=== PATIENT | male | born 1945 | race Caucasian/White ===

== ENCOUNTER 2019-12-13 09:55 | Inpatient (IN) | payer MEDICARE ==
[~2019-12-13] VITALS: Ht 175.3 cm; Wt 118.2 kg
[2019-12-13] MEDS ORDERED: NEURONTIN 300300 MG PO (10:12)
[2019-12-13] MEDS ORDERED: OMEPRAZOLE40 MG PO (10:12)
[2019-12-13] MEDS ORDERED: HYDROCHLOROTHIA25 MG PO (10:12)
[2019-12-13] MEDS ORDERED: COREG6.25 MG PO (10:13)
[2019-12-13] MEDS ORDERED: LEXAPRO20 MG PO (10:31)
[2019-12-13] MEDS ORDERED: LISINOPRIL20 MG PO (10:31)
[2019-12-13] MEDS ORDERED: SINGULAIR10 MG PO (10:32)
[2019-12-13] MEDS ORDERED: MOBIC7.5 MG PO (10:32)
[2019-12-13] MEDS ORDERED: GLYBURIDE5 M1 PO (10:32)
[2019-12-13] MEDS ORDERED: MULTI-DAY VITAM1 TAB PO (10:33)
[2019-12-13] MEDS ORDERED: LIPITOR20 MG PO (10:33)
[2019-12-13] MEDS ORDERED: [UNRECOGNIZED DRUG - OTHER] EACH EYE (13:40)
[2019-12-13] MEDS ORDERED: ACETAMINOPHEN500 M1 PO (13:43)
[2019-12-13] MEDS ORDERED: ADVIL100 M1 PO (13:44)
[2019-12-13 13:50] VITALS: Ht 175.3 cm; Wt 118.2 kg
[2019-12-16 09:32] VITALS: BP 167/75
[2019-12-16] MEDS ORDERED: ZITHROMAX250 MG PO (12:25)
[2019-12-16] MEDS ORDERED: CEFUROXIME500 MG PO (12:27)
== END 2019-12-16 13:38 | disposition home or self-care (01) | DRG 194 ==
LOC: D.ER 09:55 → D.M2 12:02
PROVIDERS: ADMIT Emergency Medicine; ATTEND Emergency Medicine
DX: J18.9 Pneumonia, unspecified organism (principal); N17.9 Acute kidney failure, unspecified; F17.203 Nicotine dependence unspecified, with withdrawal; J44.0 Chronic obstructive pulmonary disease with (acute) lower respiratory infection; E66.09 Other obesity due to excess calories; Z68.38 Body mass index [BMI] 38.0-38.9, adult; E86.0 Dehydration; D50.9 Iron deficiency anemia, unspecified; I10 Essential (primary) hypertension; E11.65 Type 2 diabetes mellitus with hyperglycemia; Z91.81 History of falling; Z86.73 Personal history of transient ischemic attack (TIA), and cerebral infarction without residual deficits

== ENCOUNTER 2020-02-07 07:42 | Observation (INO) | payer MEDICARE ==
[~2020-02-07] VITALS: Ht 175.3 cm; Wt 115.9 kg
[~2020-02-07 07:42] MED LIST: ACETAMINOPHEN500 M1 PO; ADVIL100 M1 PO; CEFUROXIME500 MG PO; COREG6.25 MG PO; GLYBURIDE5 M1 PO; HYDROCHLOROTHIA25 MG PO; LEXAPRO20 MG PO; LIPITOR20 MG PO; LISINOPRIL20 MG PO; MOBIC7.5 MG PO; MULTI-DAY VITAM1 TAB PO; NEURONTIN 300300 MG PO; OMEPRAZOLE40 MG PO; SINGULAIR10 MG PO; ZITHROMAX250 MG PO; [UNRECOGNIZED DRUG - OTHER] EACH EYE
[2020-02-07 08:00] VITALS: BP 180/86
[2020-02-07 08:36] LABS: BASOPHILS 0.4 % (0-2); EOSINOPHILS 3.9 % (0-7); HEMATOCRIT 34.8 % (42.0-54.0); HEMOGLOBIN 10.7 g/dL (13.5-17.5); IMMATURE GRANULOCYTES 0.3 % (0-5); MCHC 30.7 g/dL (31.0-37.0); MCV 84.7 fL (80.0-100.0); MEAN PLATELET VOLUME 8.9 fL (7.4-10.4); MONOCYTES 9.7 % (2-11); NEUTROPHILS 60.7 % (40-80); PLATELET COUNT 244 10x3/uL (130-400); RBC 4.11 10x6/uL (4.20-6.10); RDW 15.4 % (11.5-14.5); WBC 6.7 10x3/uL (4.8-10.8)
[2020-02-07 08:43] LABS: INR 0.95 (0.85-1.17); PROTIME 12.6 SECONDS (11.6-15.0)
[2020-02-07 08:44] LABS: CALC OSMOLALITY 284 mosm/kg (275-300); CALCIUM 8.6 mg/dL (8.5-10.1); CARBON DIOXIDE 31.1 mmol/L (21.0-32.0); CHLORIDE - SERUM 105 mmol/L (98-107); CREATININE - SERUM 1.5 mg/dL (0.6-1.3); GLUCOSE 129 mg/dL (74-106); POTASSIUM - SERUM 4.2 mmol/L (3.5-5.1); SODIUM 140 mmol/L (136-145); UREA NITROGEN 23 mg/dL (7-18); eGFR NON AFRICAN AMERICAN 49 mL/min (90-120)
[2020-02-07 08:59] LABS: ALBUMIN 2.7 g/dL (3.4-5.0); ALKALINE PHOSPHATASE 93 U/L (30-120); ALT (SGPT) 22 U/L (10-68); BILIRUBIN - TOTAL 0.27 mg/dL (0.2-1.3); CREATINE KINASE 122 UL (21-232); MAGNESIUM - SERUM 2.1 mg/dL (1.8-2.4); TROPONIN-I 0.038 ng/mL (0.000-0.060)
--- NOTE | 2020-02-07 09:24 | NUR ---
TRANSFER FROM ER BY W/C. ROMEINTED TO ROOM. CALL LIGHT IN REACH. WILL CONT. PLAN OF CARE.
[2020-02-07 09:38] VITALS: BP 186/91; Ht 175.3 cm; Wt 115.9 kg
[2020-02-07] MEDS ORDERED: PREDNISOLONE 110 ML EACH EYE (09:47)
[2020-02-07] MEDS ORDERED: [UNRECOGNIZED DRUG - OTHER] EACH EYE (09:50)
[2020-02-07] MEDS ORDERED: RESTASIS 0.05% EACH EYE (09:50)
[2020-02-07 11:00] VITALS: BP 165/90
--- NOTE | 2020-02-07 12:22 | NUR ---
LEAVING FOR STRESS TEST BY W/C.
[2020-02-07 15:00] VITALS: BP 138/84
[2020-02-07 15:20] LABS: CREATINE KINASE 114 UL (21-232); TROPONIN-I 0.036 ng/mL (0.000-0.060)
--- NOTE | 2020-02-07 19:38 | NUR ---
RECEIVED BEDSIDE REPORT. PATIENT IS ALERT AND ORIENTED, SITTING UP IN CHAIR. NO S/S OF DISTRESS. NO C/O PAIN. CALL LIGHT WITHIN REACH. WILL CPOC.
[2020-02-07 20:50] VITALS: BP 136/90
[2020-02-07 20:51] LABS: CKMB 2.5 U/L (0.0-3.6); CREATINE KINASE 100 UL (21-232); TROPONIN-I 0.035 ng/mL (0.000-0.060)
[2020-02-08 00:39] VITALS: BP 147/75
--- NOTE | 2020-02-08 01:02 | NUR ---
PATIENT RESTING COMFORTABLY IN BED. RESPIRATIONS ARE EVEN AND UNLABORED. NO S/S OF DISTRESS. NO C/O PAIN. CALL LIGHT WITHIN REACH. WILL CPOC.
[2020-02-08 02:16] LABS: BASOPHILS 0.3 % (0-2); EOSINOPHILS 3.4 % (0-7); HEMATOCRIT 33.6 % (42.0-54.0); HEMOGLOBIN 10.2 g/dL (13.5-17.5); IMMATURE GRANULOCYTES 0.3 % (0-5); LYMPHOCYTES 18.9 % (15-50); MCH 25.7 pg (26.0-34.0); MCHC 30.4 g/dL (31.0-37.0); MCV 84.6 fL (80.0-100.0); MEAN PLATELET VOLUME 8.6 fL (7.4-10.4); MONOCYTES 10.1 % (2-11); PLATELET COUNT 218 10x3/uL (130-400); RBC 3.97 10x6/uL (4.20-6.10); RDW 15.5 % (11.5-14.5); WBC 7.6 10x3/uL (4.8-10.8)
[2020-02-08 02:40] LABS: CKMB 2.2 U/L (0.0-3.6); CREATINE KINASE 90 UL (21-232); TROPONIN-I 0.025 ng/mL (0.000-0.060)
[2020-02-08 02:51] LABS: ALBUMIN 2.6 g/dL (3.4-5.0); ANION GAP 8.9 mmol/L (8-16); BILIRUBIN - TOTAL 0.32 mg/dL (0.2-1.3); CALCIUM 8.2 mg/dL (8.5-10.1); CARBON DIOXIDE 30.6 mmol/L (21.0-32.0); CREATININE - SERUM 1.5 mg/dL (0.6-1.3); PHOSPHOROUS 4.1 mg/dL (2.5-4.9); POTASSIUM - SERUM 4.5 mmol/L (3.5-5.1); PROTEIN - SERUM 6.1 g/dL (6.4-8.2); URIC ACID 6.7 mg/dL (2.6-7.2)
--- NOTE | 2020-02-08 03:33 | NUR ---
PATIENT AWAKE REQUESTING COFFEE. NEEDS MET. CALL LIGHT WITHIN REACH. WILL CPOC.
[2020-02-08 05:13] VITALS: BP 155/72
[2020-02-08 08:59] VITALS: BP 176/93
[2020-02-08 09:05] LABS: BILIRUBIN NEGATIVE (NEGATIVE); GLUCOSE NEGATIVE (NEGATIVE); KETONE NEGATIVE (NEGATIVE); NITRITE NEGATIVE (NEGATIVE); SPECIFIC GRAVITY 1.005 (1.005-1.020); UROBILINOGEN NORMAL (NORMAL)
[2020-02-08 09:14] LABS: CREATININE - URINE 32.7 mg/dL (30-125); PRO/CRE RATIO URINE 4.3 mg/g; PROTEIN - URINE 139.4 mg/dL (0.0-11.9)
--- NOTE | 2020-02-08 10:08 | NUR ---
IV AND TELEMETRY DCD. DC PLANS GIVEN. UNDERSTANDING VOICED. ESCORTED TO CAR BY W/C.
--- NOTE | 2020-02-08 17:46 | MORECARE ---
CASE MANAGEMENT DISCHARGE SUMMARY PATIENT: RANDA DHILLON UNIT: [id number] ADM DATE: 02/07/20 AGE: 74 : 49 SEX: M ROOM/BED: D.2118 AUTHOR: KIMO LYNCH PHYSICIAN: REFERRING PHYSICIAN: CONCHA KRAFT MD DATE OF SERVICE: 02/08/20 Discharge Plan Patient Name: RANDA DHILLON [facility] [facility] 1945 Planned Disposition: Home Anticipated Discharge Date: 02/08/20 Discharge Date: 02/08/2020 Expected LOS: 1 Initial Reviewer: [email or web address] Initial Review Date: 02/07/2020 Generated: 02/08/20 6:45 pm Coverage Notice Reviewer: [email or web address] Sid Wilson Notice Issued Date-Time: 02/07/2020 16:50 Notice Type: Medicare Outpatient Observation Notice Notice Delivered To: Patient Relationship to Patient: Self Tobacco Prevention Health Educator Name: Randa Dhillon Delivery Method: HAND - Hand Delivered [place] Days: Prior Verbal Notification: Recipient Understood Notice: Yes Recipient Signature: Yes Med Rec Note Co-signed by Attending: Coverage Notice Comment: THOMSON signed by patient. Declines his copy. Original to chart. Patient Name: RANDA DHILLON Page [id number] at 1746 All edits/amendments must be made on the electronic document DICTATION DATE: 02/08/201744 SENSOR SPECIALIST: EDIE 02/08/201744 RPT#: [id number] DC DATE:02/08/20 STATUS: DIS IN [facility] [address] [place] [address] END OF REPORT
== END 2020-02-08 10:09 | disposition home or self-care (01) ==
LOC: D.ER 07:42 → OBSVTIME 08:52 → D.M2 08:52
PROVIDERS: Family Medicine; Internal Medicine Nephrology; ADMIT Family Medicine; ATTEND Family Medicine
DX: R07.9 Chest pain, unspecified (principal); N17.9 Acute kidney failure, unspecified; I10 Essential (primary) hypertension; E78.5 Hyperlipidemia, unspecified; J44.9 Chronic obstructive pulmonary disease, unspecified; E11.9 Type 2 diabetes mellitus without complications; K21.9 Gastro-esophageal reflux disease without esophagitis